=== PATIENT | female | born 1950 | race Hispanic/Latino ===

== ENCOUNTER 2022-01-07 16:56 | Emergency (ER) | payer OTHER, MEDICARE ==
[~2022-01-07] VITALS: Ht 152.4 cm; Wt 44.5 kg
[2022-01-07 17:30] VITALS: BP 116/65
[2022-01-07] MEDS ORDERED: HYDROCODONE/ACETAMINOPHEN 5/325 MG TAB PO ONE (17:30)
[2022-01-07] MEDS ORDERED: CYCLOBENZAPRINE HCL 10 MG TABLET PO ONE (17:30)
[2022-01-07] MEDS ORDERED: CYCL10TA16 PO (19:05)
[2022-01-07] MEDS ORDERED: NAPR-1180 PO (19:05)
== END 2022-01-07 19:19 | disposition home or self-care (01) ==
LOC: EDH 16:56
DX: S16.1XXA Strain of muscle, fascia and tendon at neck level, initial encounter (principal); S00.33XA Contusion of nose, initial encounter; S20.219A Contusion of unspecified front wall of thorax, initial encounter; Z20.822 Contact with and (suspected) exposure to COVID-19; E78.00 Pure hypercholesterolemia, unspecified; Z79.1 Long term (current) use of non-steroidal anti-inflammatories (NSAID); Z89.512 Acquired absence of left leg below knee; X58.XXXA Exposure to other specified factors, initial encounter; Y93.89 Activity, other specified; Y92.89 Other specified places as the place of occurrence of the external cause; Y99.8 Other external cause status
CPT/HCPCS: 70450; 70486; 71045; 71120; 72125

== ENCOUNTER 2022-07-14 09:06 | Inpatient (IN) | payer OTHER, MEDICARE ==
[2022-07-14] VITALS (24 sets, daily range): BP systolic 101–159; BP diastolic 48–65
[~2022-07-14] VITALS: Ht 152.4 cm; Wt 42.6 kg
[~2022-07-14 09:06] MED LIST: CYCL10TA16 PO; NAPR-1180 PO
[2022-07-14] MEDS ORDERED: HYDROCODONE/ACETAMINOPHEN 5/325 MG TAB PO ONE (10:00)
[2022-07-14 11:19] LABS: BASOPHILS % (AUTO) 0.2 % (0.0-5.0); EOSINOPHILS % (AUTO) 0.9 % (0.0-8.0); HEMATOCRIT 34.6 % (36-48); MEAN CORPUSCULAR HEMOGLOBIN 28.8 pg (27.0-33.0); MEAN CORPUSCULAR HGB CONC 31.8 g/dL (32.0-36.0); MEAN CORPUSCULAR VOLUME 90.6 fL (79-99); MONOCYTES % (AUTO) 7.9 % (3.0-13.0); NEUTROPHILS % (AUTO) 72.5 % (40.0-77.0); PLATELET COUNT (AUTO) 256 K/uL (130-400); RED BLOOD CELL COUNT(AUTO) 3.82 MIL/uL (4.00-5.50); RED CELL DISTRIBUTION WIDTH 13.5 % (11.0-15.5); WHITE BLOOD COUNT (AUTO) 8.6 K/uL (4.8-10.8)
[2022-07-14 11:24] LABS: CREATININE 0.7 mg/dL (0.5-1.5); POTASSIUM 3.8 mmol/L (3.5-5.1)
[2022-07-14] MEDS: 0.9%NACL 1000ML 1,000 ML IV SCH ×2 (11:28→13:27)
[2022-07-14 11:29] LABS: ALBUMIN 3.5 g/dL (3.5-5.0); TOTAL PROTEIN, SERUM 7.5 g/dL (6.0-8.3)
[2022-07-14] MEDS ORDERED: ACETAMINOPHEN WITH CODEINE 1 TAB TAB PO PRN (11:30)
[2022-07-14] MEDS ORDERED: ONDANSETRON 4MG INJ IV PRN (11:30)
[2022-07-14] MEDS ORDERED: ACETAMINOPHEN 325 MG TAB PO PRN ×2 (11:30)
[2022-07-14] MEDS ORDERED: MORPHINE 2 MG SYG IVP PRN (11:30)
[2022-07-14 11:34] LABS: INR 0.94 (0.85-1.15); PROTHROMBIN TIME 10.3 SEC (9.6-11.6)
[2022-07-14] MEDS ORDERED: SUCCINYLCHOLINE CHLORIDE 20 MG/ML 10 ML VIAL ONE (14:50)
[2022-07-14] MEDS ORDERED: MIDAZOLAM HCL 1 MG/ML 2ML VIAL ONE (14:51)
[2022-07-14] MEDS ORDERED: ROPIVACAINE 0.5% 5MG/ML 30ML IJ ONE (14:51)
[2022-07-14] MEDS ORDERED: PROPOFOL 10 MG/ML 20ML VIAL IV ONE (14:51)
[2022-07-14] MEDS ORDERED: ROCURONIUM 10MG/1ML SYR 10 MG/ML ML ONE (14:52)
[2022-07-14] MEDS ORDERED: FENTANYL CITRATE PF 50 MCG/1 ML 2ML VIAL ONE (14:52)
[2022-07-14] MEDS ORDERED: CEFAZOLIN SODIUM 2 GM VIAL IVP ONE (15:12)
[2022-07-14] MEDS ORDERED: NEOSTIGMINE 5MG/5ML SYR IV ONE (16:09)
[2022-07-14] MEDS ORDERED: GLYCOPYRROLATE 1 MG/5 ML SYRINGE ONE (16:09)
[2022-07-14] MEDS ORDERED: FAMOTIDINE 20MG TAB ONE (19:01)
[2022-07-14] MEDS ORDERED: CEFAZOLIN SODIUM 1 GM VIAL ONE (19:01)
[2022-07-14] MEDS: FAMOTIDINE 20MG TAB PO SCH (20:01)
[2022-07-14] MEDS: CEFAZOLIN SODIUM 1 GM VIAL IVP SCH (20:01)
[2022-07-15] VITALS: BP 109/50
[2022-07-15 03:47] LABS: BASOPHILS % (AUTO) 0.3 % (0.0-5.0); EOSINOPHILS % (AUTO) 0.5 % (0.0-8.0); HEMATOCRIT 26.1 % (36-48); LYMPHOCYTES % (AUTO) 14.3 % (21.0-51.0); MEAN CORPUSCULAR HEMOGLOBIN 29.1 pg (27.0-33.0); MEAN CORPUSCULAR HGB CONC 32.2 g/dL (32.0-36.0); MEAN CORPUSCULAR VOLUME 90.3 fL (79-99); MONOCYTES % (AUTO) 9.9 % (3.0-13.0); NEUTROPHILS % (AUTO) 74.5 % (40.0-77.0); PLATELET COUNT (AUTO) 224 K/uL (130-400); RED BLOOD CELL COUNT(AUTO) 2.89 MIL/uL (4.00-5.50); RED CELL DISTRIBUTION WIDTH 13.4 % (11.0-15.5); WHITE BLOOD COUNT (AUTO) 10.1 K/uL (4.8-10.8)
[2022-07-15] MEDS: ACETAMINOPHEN WITH CODEINE 1 TAB TAB PO PRN ×2 (03:51→19:30)
[2022-07-15] MEDS: CEFAZOLIN SODIUM 1 GM VIAL IVP SCH (03:51)
[2022-07-15 03:57] LABS: CREATININE 0.6 mg/dL (0.5-1.5); POTASSIUM 3.8 mmol/L (3.5-5.1)
[2022-07-15 04:00] VITALS: BP 110/46
[2022-07-15 08:00] VITALS: BP 91/45
[2022-07-15] MEDS: FAMOTIDINE 20MG TAB PO SCH ×2 (08:31→19:29)
[2022-07-15] MEDS: ENOXAPARIN SODIUM 40 MG/0.4 ML SYRINGE SQ SCH (08:32)
[2022-07-15 11:45] VITALS: BP 114/54
[2022-07-15 15:49] VITALS: BP 119/58
[2022-07-15 20:00] VITALS: BP 109/50
[2022-07-16] VITALS: BP 104/58
[2022-07-16 04:00] VITALS: BP 107/55
[2022-07-16 04:51] LABS: BASOPHILS % (AUTO) 0.2 % (0.0-5.0); HEMATOCRIT 26.1 % (36-48); LYMPHOCYTES % (AUTO) 7.5 % (21.0-51.0); MEAN CORPUSCULAR HEMOGLOBIN 29.4 pg (27.0-33.0); MEAN CORPUSCULAR VOLUME 89.1 fL (79-99); MONOCYTES % (AUTO) 11.5 % (3.0-13.0); NEUTROPHILS % (AUTO) 80.3 % (40.0-77.0); PLATELET COUNT (AUTO) 245 K/uL (130-400); RED BLOOD CELL COUNT(AUTO) 2.93 MIL/uL (4.00-5.50); RED CELL DISTRIBUTION WIDTH 13.5 % (11.0-15.5); WHITE BLOOD COUNT (AUTO) 13.3 K/uL (4.8-10.8)
[2022-07-16 05:10] LABS: ALBUMIN 2.4 g/dL (3.5-5.0); CREATININE 0.6 mg/dL (0.5-1.5); POTASSIUM 3.2 mmol/L (3.5-5.1); TOTAL PROTEIN, SERUM 6.1 g/dL (6.0-8.3)
[2022-07-16] MEDS: FAMOTIDINE 20MG TAB PO SCH ×2 (07:51→19:20)
[2022-07-16] MEDS: ENOXAPARIN SODIUM 40 MG/0.4 ML SYRINGE SQ SCH (07:52)
[2022-07-16 08:00] VITALS: BP 109/49
[2022-07-16] MEDS ORDERED: POTASSIUM CHLORIDE 20MEQ/100ML 100 ML IV PRN (08:00)
[2022-07-16] MEDS ORDERED: LIDOCAINE HCL-MPF 1% 2ML VIAL IV PRN (08:00)
[2022-07-16] MEDS ORDERED: OFLO35OS OS (08:14)
[2022-07-16] MEDS ORDERED: CYCL-309 PO (08:14)
[2022-07-16] MEDS ORDERED: PREDAOS OS (08:14)
[2022-07-16] MEDS ORDERED: ATOR40TA71 PO (08:14)
[2022-07-16] MEDS ORDERED: POTASSIUM CHLORIDE 10% ELIXIR 20 MEQ/15 ML UDCUP PO PRN (09:30)
[2022-07-16] MEDS: KCL 20 MEQ ERTAB PO PRN ×3 (09:33→15:35)
[2022-07-16 12:00] VITALS: BP 107/53
[2022-07-16 16:00] VITALS: BP 107/52
[2022-07-16] MEDS: ACETAMINOPHEN WITH CODEINE 1 TAB TAB PO PRN (19:11)
[2022-07-16 20:00] VITALS: BP 93/48
[2022-07-17] VITALS: BP 101/52
[2022-07-17 03:50] LABS: MEAN CORPUSCULAR HEMOGLOBIN 28.8 pg (27.0-33.0); MEAN CORPUSCULAR VOLUME 89.9 fL (79-99); RED BLOOD CELL COUNT(AUTO) 2.78 MIL/uL (4.00-5.50); RED CELL DISTRIBUTION WIDTH 13.5 % (11.0-15.5); WHITE BLOOD COUNT (AUTO) 10.5 K/uL (4.8-10.8)
[2022-07-17 04:00] VITALS: BP 101/52
[2022-07-17 04:03] LABS: CREATININE 0.6 mg/dL (0.5-1.5); POTASSIUM 3.9 mmol/L (3.5-5.1)
[2022-07-17] MEDS: ENOXAPARIN SODIUM 40 MG/0.4 ML SYRINGE SQ SCH (07:55)
[2022-07-17] MEDS: FAMOTIDINE 20MG TAB PO SCH ×2 (07:55→19:21)
[2022-07-17 08:00] VITALS: BP 111/55
[2022-07-17] MEDS: POLYETHYLENE GLYCOL 3350 17 GM POWD.PACK PO SCH (11:07)
[2022-07-17] MEDS: ACETAMINOPHEN WITH CODEINE 1 TAB TAB PO PRN (11:17)
[2022-07-17 11:31] VITALS: BP 115/56
[2022-07-17] MEDS: OFLOXACIN OS SCH ×3 (13:00→20:10)
[2022-07-17 16:00] VITALS: BP 97/52
[2022-07-17] MEDS: PREDNISOLONE 1% DROPS OS SCH ×3 (17:00→20:10)
[2022-07-17] MEDS ORDERED: LACTULOSE 20 GM/30 ML UDCUP PO PRN (17:00)
[2022-07-17 20:00] VITALS: BP 117/55
[2022-07-17] MEDS ORDERED: ATORVASTATIN 40 MG TABLET PO SCH (21:00)
[2022-07-18] VITALS: BP 130/58
[2022-07-18 03:30] VITALS: BP 117/59
[2022-07-18 05:01] LABS: BASOPHILS % (AUTO) 0.2 % (0.0-5.0); EOSINOPHILS % (AUTO) 2.5 % (0.0-8.0); HEMATOCRIT 25.4 % (36-48); LYMPHOCYTES % (AUTO) 16.2 % (21.0-51.0); MEAN CORPUSCULAR HEMOGLOBIN 28.4 pg (27.0-33.0); MEAN CORPUSCULAR HGB CONC 31.5 g/dL (32.0-36.0); MEAN CORPUSCULAR VOLUME 90.1 fL (79-99); MONOCYTES % (AUTO) 8.7 % (3.0-13.0); NEUTROPHILS % (AUTO) 71.9 % (40.0-77.0); PLATELET COUNT (AUTO) 257 K/uL (130-400); RED BLOOD CELL COUNT(AUTO) 2.82 MIL/uL (4.00-5.50); RED CELL DISTRIBUTION WIDTH 13.5 % (11.0-15.5); WHITE BLOOD COUNT (AUTO) 8.5 K/uL (4.8-10.8)
[2022-07-18 05:21] LABS: CREATININE 0.7 mg/dL (0.5-1.5); MAGNESIUM 2.2 mg/dL (1.80-2.40); POTASSIUM 3.9 mmol/L (3.5-5.1)
[2022-07-18 09:00] VITALS: BP 111/51
[2022-07-18] MEDS: OFLOXACIN OS SCH ×2 (09:00→13:00)
[2022-07-18] MEDS: POLYETHYLENE GLYCOL 3350 17 GM POWD.PACK PO SCH (09:00)
[2022-07-18] MEDS: PREDNISOLONE 1% DROPS OS SCH ×2 (09:00→13:00)
[2022-07-18] MEDS: FAMOTIDINE 20MG TAB PO SCH (09:13)
[2022-07-18] MEDS: ENOXAPARIN SODIUM 40 MG/0.4 ML SYRINGE SQ SCH (09:14)
[2022-07-18 11:20] VITALS: BP 112/54
== END 2022-07-18 16:00 | DRG 481 ==
LOC: EDH 09:06 → EDHIP 11:14 → 4BH 13:18
PROVIDERS: ADMIT Hospitalist; ATTEND Hospitalist
PROC: 0QSC04Z Reposition Left Lower Femur with Internal Fixation Device, Open Approach (ICD-10-PCS; principal; 2022-07-14 14:55)
DX: S72.492A Other fracture of lower end of left femur, initial encounter for closed fracture (principal); E44.1 Mild protein-calorie malnutrition; R71.0 Precipitous drop in hematocrit; E78.00 Pure hypercholesterolemia, unspecified; I10 Essential (primary) hypertension; W07.XXXA Fall from chair, initial encounter; Z89.611 Acquired absence of right leg above knee; Y93.89 Activity, other specified; Z89.512 Acquired absence of left leg below knee; Y92.89 Other specified places as the place of occurrence of the external cause; Y99.8 Other external cause status
CPT/HCPCS: 36415; 71045; 73552; 73562; 74018; 80048; 80053; 83735; 85025; 85027; 85610; 93005; 97039; G0378; J0330; J0690; J1650; J2250; J2704; J2710; J2795; J3010; J3490; J7030; J7510

== ENCOUNTER 2022-08-25 09:35 | Inpatient (IN) | payer OTHER, MEDICARE ==
[~2022-08-25] VITALS: Ht 152.4 cm; Wt 43.6 kg
[~2022-08-25 09:35] MED LIST changes: +ATOR40TA71 PO; +CYCL-309 PO; -CYCL10TA16 PO; -NAPR-1180 PO; +OFLO35OS OS; +PREDAOS OS
[2022-08-25] MEDS ORDERED: MORPHINE 2 MG SYG IVP ONE (12:30)
[2022-08-25] MEDS ORDERED: 0.9% NACL 250ML 250 ML IV ONE ×2 (12:30→14:30)
[2022-08-25] MEDS ORDERED: ONDANSETRON 4MG INJ IVP ONE (12:30)
[2022-08-25 12:47] LABS: BASOPHILS % (AUTO) 0.2 % (0.0-5.0); EOSINOPHILS % (AUTO) 0.1 % (0.0-8.0); HEMATOCRIT 30.8 % (36-48); LYMPHOCYTES % (AUTO) 11.2 % (21.0-51.0); MEAN CORPUSCULAR HEMOGLOBIN 26.3 pg (27.0-33.0); MEAN CORPUSCULAR HGB CONC 31.2 g/dL (32.0-36.0); MEAN CORPUSCULAR VOLUME 84.4 fL (79-99); MONOCYTES % (AUTO) 6.6 % (3.0-13.0); NEUTROPHILS % (AUTO) 81.3 % (40.0-77.0); RED BLOOD CELL COUNT(AUTO) 3.65 MIL/uL (4.00-5.50); RED CELL DISTRIBUTION WIDTH 15.3 % (11.0-15.5); WHITE BLOOD COUNT (AUTO) 15.2 K/uL (4.8-10.8)
[2022-08-25] MEDS ORDERED: VANCOMYCIN 1G/250ML KIT 250 ML IV SCH (13:00)
[2022-08-25] MEDS ORDERED: VANCOMYCIN 1G VIAL IVPB ONE (13:00)
[2022-08-25] MEDS ORDERED: ZOSYN 3.375GM +NS 50ML IV ONE (13:00)
[2022-08-25 13:04] LABS: ALBUMIN 2.7 g/dL (3.5-5.0); CREATININE 0.6 mg/dL (0.5-1.5); POTASSIUM 3.7 mmol/L (3.5-5.1); TOTAL PROTEIN, SERUM 8.1 g/dL (6.0-8.3)
[2022-08-25 13:43] LABS: PLATELET COUNT (AUTO) 721 K/uL (130-400)
[2022-08-25 13:55] LABS: ERYTHROCYTE SEDIMENTATION RATE 118 MM/HR (0-30)
[2022-08-25] MEDS ORDERED: ONDANSETRON 4MG INJ IV PRN (15:30)
[2022-08-25] MEDS ORDERED: VANCOMYCIN PROTOCOL PER PHARMACY IV PRN (15:30)
[2022-08-25] MEDS ORDERED: ACETAMINOPHEN 325 MG TAB PO PRN ×2 (15:30)
[2022-08-25] MEDS: MORPHINE 2 MG SYG IV PRN ×2 (15:57→20:30)
[2022-08-25] MEDS: 0.9%NACL 1000ML 1,000 ML IV SCH (15:57)
[2022-08-25] MEDS ORDERED: VANCOMYCIN 500MG+NS 100ML 100 ML IV ONE (19:59)
[2022-08-25] MEDS: VANCOMYCIN 500MG+NS 100ML 100 ML IV SCH (20:06)
[2022-08-25] MEDS: FAMOTIDINE 20MG VIAL IV SCH (20:07)
[2022-08-25] MEDS: CEFEPIME HCL 2 GM VIAL IVP SCH (20:07)
[2022-08-25] MEDS: GABAPENTIN 300 MG CAPSULE PO SCH (20:09)
[2022-08-25] MEDS ORDERED: ZOSYN 3.375GM+NS 50ML 50 ML IV SCH (21:00)
[2022-08-26] MEDS: MORPHINE 2 MG SYG IV PRN ×4 (00:18→20:10)
[2022-08-26] MEDS: 0.9%NACL 1000ML 1,000 ML IV SCH ×2 (05:02→15:33)
[2022-08-26 05:40] LABS: BASOPHILS % (AUTO) 0.4 % (0.0-5.0); EOSINOPHILS % (AUTO) 0.7 % (0.0-8.0); HEMATOCRIT 27.8 % (36-48); MEAN CORPUSCULAR HGB CONC 30.6 g/dL (32.0-36.0); MONOCYTES % (AUTO) 8.9 % (3.0-13.0); NEUTROPHILS % (AUTO) 75.5 % (40.0-77.0); PLATELET COUNT (AUTO) 611 K/uL (130-400); RED BLOOD CELL COUNT(AUTO) 3.27 MIL/uL (4.00-5.50); RED CELL DISTRIBUTION WIDTH 15.4 % (11.0-15.5); WHITE BLOOD COUNT (AUTO) 9.9 K/uL (4.8-10.8)
[2022-08-26 05:57] LABS: ALBUMIN 2.3 g/dL (3.5-5.0); CREATININE 0.6 mg/dL (0.5-1.5); POTASSIUM 3.9 mmol/L (3.5-5.1)
[2022-08-26 06:34] LABS: ERYTHROCYTE SEDIMENTATION RATE 90 MM/HR (0-30)
[2022-08-26] MEDS: CEFEPIME HCL 2 GM VIAL IVP SCH ×2 (08:22→19:52)
[2022-08-26] MEDS: FAMOTIDINE 20MG VIAL IV SCH ×2 (09:03→19:52)
[2022-08-26] MEDS: GABAPENTIN 300 MG CAPSULE PO SCH ×3 (09:03→19:52)
[2022-08-26] MEDS: VANCOMYCIN 500MG+NS 100ML 100 ML IV SCH ×2 (09:03→21:14)
[2022-08-26] MEDS ORDERED: ASPI-1197 PO (11:30)
[2022-08-26 13:30] VITALS: BP 121/55
[2022-08-26 16:03] VITALS: BP 130/57
[2022-08-26 20:00] VITALS: BP 123/52
[2022-08-27] VITALS (27 sets, daily range): BP systolic 81–168; BP diastolic 29–83
[2022-08-27] MEDS: 0.9%NACL 1000ML 1,000 ML IV SCH ×2 (05:35→18:42)
[2022-08-27] MEDS: MORPHINE 2 MG SYG IV PRN ×3 (05:42→20:42)
[2022-08-27] MEDS ORDERED: ALBUMIN (HUMAN) 5% 500 ML IV ONE (07:18)
[2022-08-27 08:17] LABS: HEMATOCRIT 25.1 % (36-48); MEAN CORPUSCULAR HGB CONC 29.9 g/dL (32.0-36.0); MEAN CORPUSCULAR VOLUME 86.9 fL (79-99); RED BLOOD CELL COUNT(AUTO) 2.89 MIL/uL (4.00-5.50); RED CELL DISTRIBUTION WIDTH 15.4 % (11.0-15.5); WHITE BLOOD COUNT (AUTO) 7.8 K/uL (4.8-10.8)
[2022-08-27 08:41] LABS: CREATININE 0.5 mg/dL (0.5-1.5); POTASSIUM 3.4 mmol/L (3.5-5.1); TOTAL PROTEIN, SERUM 6.1 g/dL (6.0-8.3)
[2022-08-27 08:42] LABS: PROTHROMBIN TIME 10.9 SEC (9.6-11.6)
[2022-08-27 08:43] LABS: PARTIAL THROMBOPLASTIN TIME 35.1 SEC (26.3-35.5)
[2022-08-27] MEDS ORDERED: 0.9% NACL 250ML 250 ML ONE (08:48)
[2022-08-27] MEDS ORDERED: LACTATED RINGERS 1000ML 1,000 ML IV ONE (08:54)
[2022-08-27] MEDS: GABAPENTIN 300 MG CAPSULE PO SCH ×3 (09:00→20:41)
[2022-08-27] MEDS: FAMOTIDINE 20MG VIAL IV SCH ×2 (09:00→20:41)
[2022-08-27] MEDS ORDERED: LIDOCAINE PF 100MG/5ML (2%) SYRINGE 5ML ONE (09:02)
[2022-08-27] MEDS ORDERED: SUCCINYLCHOLINE 200MG/10ML SYR ONE (09:02)
[2022-08-27] MEDS ORDERED: DEXAMETHASONE SOD PHOSPHATE 10MG/ML 1ML VIAL ONE (09:02)
[2022-08-27] MEDS ORDERED: NEOSTIGMINE 5MG/5ML SYR IV ONE (09:03)
[2022-08-27] MEDS ORDERED: ONDANSETRON 4MG INJ ONE (09:03)
[2022-08-27] MEDS ORDERED: ROCURONIUM 10MG/1ML SYR 10 MG/ML ML ONE (09:03)
[2022-08-27] MEDS ORDERED: MIDAZOLAM HCL 1 MG/ML 2ML VIAL ONE (09:03)
[2022-08-27] MEDS ORDERED: PROPOFOL 10 MG/ML 20ML VIAL IV ONE (09:03)
[2022-08-27] MEDS ORDERED: GLYCOPYRROLATE 1 MG/5 ML SYRINGE ONE (09:03)
[2022-08-27] MEDS ORDERED: FENTANYL CITRATE PF 50 MCG/1 ML 2ML VIAL ONE (09:04)
[2022-08-27] MEDS: CEFEPIME HCL 2 GM VIAL IVP SCH ×2 (09:32→20:40)
[2022-08-27] MEDS: VANCOMYCIN 500MG+NS 100ML 100 ML IV SCH ×3 (09:32→23:19)
[2022-08-27] MEDS ORDERED: DIPHENHYDRAMINE HCL 25 MG CAPSULE PO PRN (10:30)
[2022-08-27] MEDS ORDERED: FERROUS FUMARATE 324 MG TABLET PO PRN (10:30)
[2022-08-27] MEDS ORDERED: MEPERIDINE-PF 25 MG/ML SYG ONE ×2 (10:39→10:55)
[2022-08-27] MEDS: PSYLLIUM SEED 1 EACH PACKET PO SCH (13:14)
[2022-08-27 14:15] LABS: HEMATOCRIT 25.4 % (36-48)
[2022-08-27] MEDS: ATORVASTATIN 40 MG TABLET PO SCH (20:41)
[2022-08-28 00:01] VITALS: BP 128/58
[2022-08-28 03:57] VITALS: BP 123/51
[2022-08-28] MEDS: 0.9%NACL 1000ML 1,000 ML IV SCH ×2 (05:44→21:14)
[2022-08-28 05:52] LABS: INR 1.02 (0.85-1.15); PROTHROMBIN TIME 11.1 SEC (9.6-11.6)
[2022-08-28 06:00] LABS: CREATININE 0.5 mg/dL (0.5-1.5); POTASSIUM 3.6 mmol/L (3.5-5.1)
[2022-08-28 06:04] LABS: HEMATOCRIT 23.2 % (36-48); MEAN CORPUSCULAR HEMOGLOBIN 25.9 pg (27.0-33.0); MEAN CORPUSCULAR HGB CONC 30.6 g/dL (32.0-36.0); MEAN CORPUSCULAR VOLUME 84.7 fL (79-99); RED BLOOD CELL COUNT(AUTO) 2.74 MIL/uL (4.00-5.50); RED CELL DISTRIBUTION WIDTH 15.4 % (11.0-15.5); WHITE BLOOD COUNT (AUTO) 11.1 K/uL (4.8-10.8)
[2022-08-28] MEDS: VANCOMYCIN 500MG+NS 100ML 100 ML IV SCH ×3 (06:31→22:36)
[2022-08-28 08:00] VITALS: BP 131/60
[2022-08-28] MEDS: CEFEPIME HCL 2 GM VIAL IVP SCH ×2 (08:46→20:32)
[2022-08-28] MEDS: ASPIRIN 81MG CHEW TAB PO SCH (08:47)
[2022-08-28] MEDS: GABAPENTIN 300 MG CAPSULE PO SCH ×3 (08:47→20:33)
[2022-08-28] MEDS: FAMOTIDINE 20MG VIAL IV SCH ×2 (08:47→20:33)
[2022-08-28] MEDS: POLYETHYLENE GLYCOL 3350 17 GM POWD.PACK PO SCH (08:47)
[2022-08-28] MEDS: MORPHINE 2 MG SYG IV PRN ×3 (08:54→20:35)
[2022-08-28 12:00] VITALS: BP 95/51
[2022-08-28] MEDS: PSYLLIUM SEED 1 EACH PACKET PO SCH (12:11)
[2022-08-28 16:00] VITALS: BP 107/54
[2022-08-28 19:38] VITALS: BP 119/69
[2022-08-28] MEDS: ATORVASTATIN 40 MG TABLET PO SCH (20:33)
[2022-08-29 00:10] VITALS: BP 121/62
[2022-08-29] MEDS: MORPHINE 2 MG SYG IV PRN ×4 (01:04→16:25)
[2022-08-29 03:45] VITALS: BP 117/52
[2022-08-29 05:25] LABS: HEMATOCRIT 22.8 % (36-48); MEAN CORPUSCULAR HEMOGLOBIN 25.9 pg (27.0-33.0); MEAN CORPUSCULAR HGB CONC 30.3 g/dL (32.0-36.0); MEAN CORPUSCULAR VOLUME 85.7 fL (79-99); RED BLOOD CELL COUNT(AUTO) 2.66 MIL/uL (4.00-5.50); RED CELL DISTRIBUTION WIDTH 15.4 % (11.0-15.5)
[2022-08-29 05:36] LABS: CREATININE 0.5 mg/dL (0.5-1.5); POTASSIUM 3.1 mmol/L (3.5-5.1)
[2022-08-29] MEDS: VANCOMYCIN 500MG+NS 100ML 100 ML IV SCH (05:48)
[2022-08-29 05:50] LABS: INR 0.99 (0.85-1.15); PROTHROMBIN TIME 10.8 SEC (9.6-11.6)
[2022-08-29 06:37] LABS: HEMATOCRIT 23.4 % (36-48)
[2022-08-29 07:00] VITALS: BP 113/57
[2022-08-29] MEDS ORDERED: POTASSIUM CHLORIDE 20MEQ/100ML 100 ML IV PRN (09:40)
[2022-08-29] MEDS: ASPIRIN 81MG CHEW TAB PO SCH (09:45)
[2022-08-29] MEDS: 0.9%NACL 1000ML 1,000 ML IV SCH ×2 (09:45→20:10)
[2022-08-29] MEDS: GABAPENTIN 300 MG CAPSULE PO SCH ×3 (09:45→20:11)
[2022-08-29] MEDS: FAMOTIDINE 20MG VIAL IV SCH ×2 (09:45→20:11)
[2022-08-29] MEDS: CEFEPIME HCL 2 GM VIAL IVP SCH (09:45)
[2022-08-29] MEDS: POLYETHYLENE GLYCOL 3350 17 GM POWD.PACK PO SCH (09:45)
[2022-08-29] MEDS: KCL 20 MEQ ERTAB PO PRN ×3 (09:46→20:11)
[2022-08-29] MEDS ORDERED: LIDOCAINE HCL-MPF 1% 2ML VIAL IV PRN (10:00)
[2022-08-29] MEDS ORDERED: POTASSIUM CHLORIDE 10% ELIXIR 20 MEQ/15 ML UDCUP PO PRN (10:00)
[2022-08-29] MEDS ORDERED: BISACODYL 5 MG TABLET.DR PO PRN (10:30)
[2022-08-29 11:00] VITALS: BP 112/55
[2022-08-29] MEDS: PSYLLIUM SEED 1 EACH PACKET PO SCH (11:25)
[2022-08-29] MEDS: LEVOFLOXACIN 500 MG TABLET PO SCH (12:44)
[2022-08-29 16:00] VITALS: BP 137/75
[2022-08-29 20:00] VITALS: BP 132/67
[2022-08-29] MEDS: ATORVASTATIN 40 MG TABLET PO SCH (20:10)
[2022-08-30] VITALS: BP 122/61
[2022-08-30] MEDS: MORPHINE 2 MG SYG IV PRN ×4 (00:13→17:58)
[2022-08-30 04:00] VITALS: BP 112/56
[2022-08-30 06:02] LABS: HEMATOCRIT 26.9 % (36-48); MEAN CORPUSCULAR HEMOGLOBIN 25.7 pg (27.0-33.0); MEAN CORPUSCULAR HGB CONC 29.7 g/dL (32.0-36.0); MEAN CORPUSCULAR VOLUME 86.5 fL (79-99); RED BLOOD CELL COUNT(AUTO) 3.11 MIL/uL (4.00-5.50); RED CELL DISTRIBUTION WIDTH 15.4 % (11.0-15.5); WHITE BLOOD COUNT (AUTO) 7.5 K/uL (4.8-10.8)
[2022-08-30 06:07] LABS: INR 1.02 (0.85-1.15); PROTHROMBIN TIME 11.1 SEC (9.6-11.6)
[2022-08-30 06:11] LABS: CREATININE 0.4 mg/dL (0.5-1.5); POTASSIUM 4.1 mmol/L (3.5-5.1)
[2022-08-30] MEDS: ASPIRIN 81MG CHEW TAB PO SCH (07:52)
[2022-08-30] MEDS: GABAPENTIN 300 MG CAPSULE PO SCH ×3 (07:52→22:06)
[2022-08-30] MEDS: POLYETHYLENE GLYCOL 3350 17 GM POWD.PACK PO SCH (07:52)
[2022-08-30] MEDS: 0.9%NACL 1000ML 1,000 ML IV SCH ×2 (07:53→16:04)
[2022-08-30] MEDS: FAMOTIDINE 20MG VIAL IV SCH ×2 (07:53→22:06)
[2022-08-30 08:00] VITALS: BP 109/60
[2022-08-30] MEDS ORDERED: LEVO-70 PO (08:46)
[2022-08-30] MEDS ORDERED: GABA300C PO (08:46)
[2022-08-30] MEDS ORDERED: BISACODYL 10 MG SUPP.RECT RC PRN (10:30)
[2022-08-30 12:00] VITALS: BP 101/50
[2022-08-30] MEDS: PSYLLIUM SEED 1 EACH PACKET PO SCH (12:12)
[2022-08-30] MEDS: LEVOFLOXACIN 500 MG TABLET PO SCH (12:12)
[2022-08-30 16:00] VITALS: BP 133/77
[2022-08-30 20:00] VITALS: BP 120/66
[2022-08-30] MEDS: ATORVASTATIN 40 MG TABLET PO SCH (22:06)
[2022-08-30] MEDS: MORPHINE 2 MG SYG IVP PRN (22:46)
[2022-08-31] VITALS: BP 136/64
[2022-08-31 04:00] VITALS: BP 123/68
[2022-08-31] MEDS: MORPHINE 2 MG SYG IVP PRN ×5 (04:17→22:43)
[2022-08-31 07:30] VITALS: BP 96/58
[2022-08-31] MEDS: ASPIRIN 81MG CHEW TAB PO SCH (08:50)
[2022-08-31] MEDS: GABAPENTIN 300 MG CAPSULE PO SCH ×3 (08:50→21:19)
[2022-08-31] MEDS: POLYETHYLENE GLYCOL 3350 17 GM POWD.PACK PO SCH (08:50)
[2022-08-31] MEDS: FAMOTIDINE 20MG VIAL IV SCH ×2 (08:50→21:19)
[2022-08-31] MEDS: 0.9%NACL 1000ML 1,000 ML IV SCH (10:44)
[2022-08-31 11:00] VITALS: BP 115/60
[2022-08-31] MEDS: LEVOFLOXACIN 500 MG TABLET PO SCH (12:51)
[2022-08-31] MEDS: PSYLLIUM SEED 1 EACH PACKET PO SCH (12:52)
[2022-08-31 16:00] VITALS: BP 126/72
[2022-08-31 20:00] VITALS: BP 117/60
[2022-08-31] MEDS: ATORVASTATIN 40 MG TABLET PO SCH (21:19)
[2022-09-01] VITALS (7 sets, daily range): BP systolic 96–141; BP diastolic 57–66
[2022-09-01] MEDS: MORPHINE 2 MG SYG IVP PRN ×4 (03:26→20:58)
[2022-09-01] MEDS ORDERED: LACTULOSE 20 GM/30 ML UDCUP PO ONE (04:00)
[2022-09-01 05:04] LABS: BASOPHILS % (AUTO) 0.5 % (0.0-5.0); EOSINOPHILS % (AUTO) 5.4 % (0.0-8.0); HEMATOCRIT 27.5 % (36-48); LYMPHOCYTES % (AUTO) 22.8 % (21.0-51.0); MEAN CORPUSCULAR HEMOGLOBIN 25.8 pg (27.0-33.0); MEAN CORPUSCULAR HGB CONC 30.2 g/dL (32.0-36.0); MEAN CORPUSCULAR VOLUME 85.4 fL (79-99); MONOCYTES % (AUTO) 9.4 % (3.0-13.0); NEUTROPHILS % (AUTO) 61.1 % (40.0-77.0); PLATELET COUNT (AUTO) 582 K/uL (130-400); RED BLOOD CELL COUNT(AUTO) 3.22 MIL/uL (4.00-5.50); RED CELL DISTRIBUTION WIDTH 15.5 % (11.0-15.5); WHITE BLOOD COUNT (AUTO) 9.7 K/uL (4.8-10.8)
[2022-09-01 05:17] LABS: CREATININE 0.6 mg/dL (0.5-1.5); POTASSIUM 4.4 mmol/L (3.5-5.1)
[2022-09-01] MEDS: GABAPENTIN 300 MG CAPSULE PO SCH ×3 (09:16→20:57)
[2022-09-01] MEDS: FAMOTIDINE 20MG VIAL IV SCH ×2 (09:16→20:57)
[2022-09-01] MEDS: ASPIRIN 81MG CHEW TAB PO SCH (09:16)
[2022-09-01] MEDS: POLYETHYLENE GLYCOL 3350 17 GM POWD.PACK PO SCH (09:17)
[2022-09-01] MEDS ORDERED: ACETAMINOPHEN WITH CODEINE 1 TAB TAB PO PRN (11:00)
[2022-09-01] MEDS: LEVOFLOXACIN 500 MG TABLET PO SCH (12:03)
[2022-09-01] MEDS: PSYLLIUM SEED 1 EACH PACKET PO SCH (12:04)
[2022-09-01] MEDS: ATORVASTATIN 40 MG TABLET PO SCH (20:57)
[2022-09-02] MEDS: MORPHINE 2 MG SYG IVP PRN ×4 (03:03→20:40)
[2022-09-02 03:51] VITALS: BP 119/52
[2022-09-02 05:16] LABS: BASOPHILS % (AUTO) 0.5 % (0.0-5.0); HEMATOCRIT 26.8 % (36-48); LYMPHOCYTES % (AUTO) 23.7 % (21.0-51.0); MEAN CORPUSCULAR HEMOGLOBIN 25.8 pg (27.0-33.0); MEAN CORPUSCULAR HGB CONC 31.3 g/dL (32.0-36.0); MEAN CORPUSCULAR VOLUME 82.2 fL (79-99); MONOCYTES % (AUTO) 11.4 % (3.0-13.0); NEUTROPHILS % (AUTO) 58.6 % (40.0-77.0); PLATELET COUNT (AUTO) 583 K/uL (130-400); RED BLOOD CELL COUNT(AUTO) 3.26 MIL/uL (4.00-5.50); RED CELL DISTRIBUTION WIDTH 15.7 % (11.0-15.5); WHITE BLOOD COUNT (AUTO) 9.8 K/uL (4.8-10.8)
[2022-09-02 05:29] LABS: CREATININE 0.5 mg/dL (0.5-1.5); MAGNESIUM 2.1 mg/dL (1.80-2.40); POTASSIUM 4.3 mmol/L (3.5-5.1)
[2022-09-02 08:00] VITALS: BP 104/55
[2022-09-02] MEDS: FAMOTIDINE 20MG VIAL IV SCH ×2 (08:42→20:39)
[2022-09-02] MEDS: ASPIRIN 81MG CHEW TAB PO SCH (08:43)
[2022-09-02] MEDS: GABAPENTIN 300 MG CAPSULE PO SCH ×3 (08:48→20:39)
[2022-09-02] MEDS: POLYETHYLENE GLYCOL 3350 17 GM POWD.PACK PO SCH (08:48)
[2022-09-02 12:00] VITALS: BP 104/54
[2022-09-02] MEDS: LEVOFLOXACIN 500 MG TABLET PO SCH (12:24)
[2022-09-02] MEDS: PSYLLIUM SEED 1 EACH PACKET PO SCH (12:25)
[2022-09-02 16:00] VITALS: BP 101/56
[2022-09-02 20:23] VITALS: BP 99/60
[2022-09-02] MEDS: ATORVASTATIN 40 MG TABLET PO SCH (20:39)
[2022-09-02 23:38] VITALS: BP 106/62
[2022-09-03] MEDS: MORPHINE 2 MG SYG IVP PRN ×3 (02:01→17:22)
[2022-09-03 03:15] VITALS: BP 117/64
[2022-09-03 07:55] VITALS: BP 101/59
[2022-09-03] MEDS: FAMOTIDINE 20MG VIAL IV SCH ×2 (08:58→21:37)
[2022-09-03] MEDS: POLYETHYLENE GLYCOL 3350 17 GM POWD.PACK PO SCH (08:58)
[2022-09-03] MEDS: ASPIRIN 81MG CHEW TAB PO SCH (08:58)
[2022-09-03] MEDS: GABAPENTIN 300 MG CAPSULE PO SCH ×3 (08:58→21:37)
[2022-09-03 11:20] VITALS: BP 100/60
[2022-09-03] MEDS: LEVOFLOXACIN 500 MG TABLET PO SCH (12:00)
[2022-09-03] MEDS ORDERED: ACET-2079 PO (12:33)
[2022-09-03] MEDS: PSYLLIUM SEED 1 EACH PACKET PO SCH (14:42)
[2022-09-03 15:20] VITALS: BP 107/59
[2022-09-03 20:03] VITALS: BP 102/57
[2022-09-03] MEDS: ATORVASTATIN 40 MG TABLET PO SCH (21:37)
[2022-09-04 00:03] VITALS: BP 102/53
[2022-09-04] MEDS: MORPHINE 2 MG SYG IVP PRN (03:45)
[2022-09-04 04:02] VITALS: BP 100/59
[2022-09-04 08:00] VITALS: BP 108/71
[2022-09-04] MEDS: POLYETHYLENE GLYCOL 3350 17 GM POWD.PACK PO SCH (09:00)
[2022-09-04] MEDS: GABAPENTIN 300 MG CAPSULE PO SCH ×2 (09:31→14:05)
[2022-09-04] MEDS: ASPIRIN 81MG CHEW TAB PO SCH (09:31)
[2022-09-04] MEDS: FAMOTIDINE 20MG VIAL IV SCH (09:31)
[2022-09-04] MEDS ORDERED: LEVO-70 PO (09:34)
[2022-09-04 12:00] VITALS: BP 104/61
[2022-09-04] MEDS: PSYLLIUM SEED 1 EACH PACKET PO SCH (12:09)
[2022-09-04] MEDS: LEVOFLOXACIN 500 MG TABLET PO SCH (12:09)
[2022-09-04 16:00] VITALS: BP 109/50
== END 2022-09-04 18:10 | disposition home or self-care (01) | DRG 500 ==
LOC: EDH 09:35 → EDHIP 16:55 → 3BH 08-26 12:42
PROVIDERS: ADMIT Hospitalist; ATTEND Hospitalist
PROC: 0YB Anatomical Regions, Lower Extremities, Excision (ICD-10-PCS; principal; 2022-08-27 09:47)
PROC: 0YPB0YZ Removal of Other Device from Left Lower Extremity, Open Approach (ICD-10-PCS; 2022-08-27 09:47)
DX: T84.115A Breakdown (mechanical) of internal fixation device of left femur, initial encounter (principal); A41.9 Sepsis, unspecified organism; L02.416 Cutaneous abscess of left lower limb; T87.44 Infection of amputation stump, left lower extremity; Z20.822 Contact with and (suspected) exposure to COVID-19; I73.9 Peripheral vascular disease, unspecified; W06.XXXA Fall from bed, initial encounter; I10 Essential (primary) hypertension; E78.00 Pure hypercholesterolemia, unspecified; Y83.8 Other surgical procedures as the cause of abnormal reaction of the patient, or of later complication, without mention of misadventure at the time of the procedure; Y92.89 Other specified places as the place of occurrence of the external cause; Z89.512 Acquired absence of left leg below knee; Y93.89 Activity, other specified; Y99.8 Other external cause status; Z89.511 Acquired absence of right leg below knee; Z89.611 Acquired absence of right leg above knee
CPT/HCPCS: 36415; 71045; 73552; 80048; 80053; 80202; 83605; 83735; 84145; 85014; 85018; 85025; 85027; 85610; 85651; 85730; 86850; 86900; 86901; 86923; 87040; 87070; 87076; 87077; 87186; 87635; 88304; 88312; G0378; J0330; J0692; J1100; J2001; J2175; J2250; J2405; J2543; J2704; J2710; J3010; J3370; J3490; J7030; J7050; J7120; L1830; P9045

== ENCOUNTER → 2022-10-13 | Outpatient (CLI) | payer OTHER, MEDICARE ==
[~2022-10-13] MED LIST changes: -CYCL-309 PO; -OFLO35OS OS; -PREDAOS OS
== END | disposition home or self-care (01) ==
LOC: WHH 10:34
PROVIDERS: ATTEND Family Medicine
DX: T87.81 Dehiscence of amputation stump (principal); A48.0 Gas gangrene; I10 Essential (primary) hypertension; E78.00 Pure hypercholesterolemia, unspecified; I73.9 Peripheral vascular disease, unspecified; M86.8X8 Other osteomyelitis, other site; Y83.5 Amputation of limb(s) as the cause of abnormal reaction of the patient, or of later complication, without mention of misadventure at the time of the procedure
CPT/HCPCS: G0463; A4450

== ENCOUNTER → 2022-10-20 | Outpatient (CLI) | payer OTHER, MEDICARE ==
[~2022-10-20] MED LIST changes: +LIDOCAINE HCL 4% LTA SOL 4 ML VIAL TP ONE
== END | disposition home or self-care (01) ==
LOC: WHH 09:02
PROVIDERS: ATTEND Family Medicine
DX: T87.81 Dehiscence of amputation stump (principal); A48.0 Gas gangrene; I10 Essential (primary) hypertension; I73.9 Peripheral vascular disease, unspecified; E78.00 Pure hypercholesterolemia, unspecified; M86.8X8 Other osteomyelitis, other site; Y83.5 Amputation of limb(s) as the cause of abnormal reaction of the patient, or of later complication, without mention of misadventure at the time of the procedure
CPT/HCPCS: 11042

== ENCOUNTER → 2022-10-27 | Outpatient (CLI) | payer OTHER, MEDICARE | END | disposition home or self-care (01) | LOC: WHH 10:28 | PROVIDERS: ATTEND Family Medicine | DX: T87.81 Dehiscence of amputation stump (principal); A48.0 Gas gangrene; I10 Essential (primary) hypertension; E78.00 Pure hypercholesterolemia, unspecified; I73.9 Peripheral vascular disease, unspecified; M86.8X8 Other osteomyelitis, other site; Y83.5 Amputation of limb(s) as the cause of abnormal reaction of the patient, or of later complication, without mention of misadventure at the time of the procedure | CPT/HCPCS: G0463 ==

== ENCOUNTER → 2022-11-03 | Outpatient (CLI) | payer OTHER, MEDICARE | END | disposition home or self-care (01) | LOC: WHH 09:13 | PROVIDERS: ATTEND Family Medicine | DX: T87.81 Dehiscence of amputation stump (principal); S71.102A Unspecified open wound, left thigh, initial encounter; A48.0 Gas gangrene; I73.9 Peripheral vascular disease, unspecified; I10 Essential (primary) hypertension; E78.00 Pure hypercholesterolemia, unspecified; M86.8X8 Other osteomyelitis, other site; X58.XXXA Exposure to other specified factors, initial encounter; Y93.89 Activity, other specified; Y92.89 Other specified places as the place of occurrence of the external cause; Y99.8 Other external cause status; Y83.5 Amputation of limb(s) as the cause of abnormal reaction of the patient, or of later complication, without mention of misadventure at the time of the procedure | CPT/HCPCS: 11042; A4450 ==

== ENCOUNTER → 2022-11-10 | Outpatient (CLI) | payer OTHER, MEDICARE | END | disposition home or self-care (01) | LOC: WHH 10:09 | PROVIDERS: ATTEND Family Medicine | DX: T87.81 Dehiscence of amputation stump (principal); S71.102D Unspecified open wound, left thigh, subsequent encounter; A48.0 Gas gangrene; I10 Essential (primary) hypertension; I73.9 Peripheral vascular disease, unspecified; E78.00 Pure hypercholesterolemia, unspecified; M86.8X8 Other osteomyelitis, other site; X58.XXXD Exposure to other specified factors, subsequent encounter; Y83.5 Amputation of limb(s) as the cause of abnormal reaction of the patient, or of later complication, without mention of misadventure at the time of the procedure | CPT/HCPCS: 11042 ==

== ENCOUNTER → 2022-11-17 | Outpatient (CLI) | payer OTHER, MEDICARE | END | disposition home or self-care (01) | LOC: WHH 09:56 | PROVIDERS: ATTEND Family Medicine | DX: T87.81 Dehiscence of amputation stump (principal); S71.102D Unspecified open wound, left thigh, subsequent encounter; A48.0 Gas gangrene; I10 Essential (primary) hypertension; I73.9 Peripheral vascular disease, unspecified; E78.00 Pure hypercholesterolemia, unspecified; M86.8X8 Other osteomyelitis, other site; X58.XXXD Exposure to other specified factors, subsequent encounter; Y83.5 Amputation of limb(s) as the cause of abnormal reaction of the patient, or of later complication, without mention of misadventure at the time of the procedure | CPT/HCPCS: 11042 ==

== ENCOUNTER → 2022-12-01 | Outpatient (CLI) | payer OTHER, MEDICARE | END | disposition home or self-care (01) | LOC: WHH 08:10 | PROVIDERS: ATTEND Family Medicine | DX: T87.81 Dehiscence of amputation stump (principal); I10 Essential (primary) hypertension; I73.9 Peripheral vascular disease, unspecified; E78.00 Pure hypercholesterolemia, unspecified; Y83.5 Amputation of limb(s) as the cause of abnormal reaction of the patient, or of later complication, without mention of misadventure at the time of the procedure | CPT/HCPCS: 11042; A4450 ==

== ENCOUNTER → 2022-12-08 | Outpatient (CLI) | payer OTHER, MEDICARE | END | disposition home or self-care (01) | LOC: WHH 09:06 | PROVIDERS: ATTEND Family Medicine | DX: T87.81 Dehiscence of amputation stump (principal); E11.622 Type 2 diabetes mellitus with other skin ulcer; L97.822 Non-pressure chronic ulcer of other part of left lower leg with fat layer exposed; I10 Essential (primary) hypertension; E78.00 Pure hypercholesterolemia, unspecified; E11.52 Type 2 diabetes mellitus with diabetic peripheral angiopathy with gangrene; A48.0 Gas gangrene; E11.69 Type 2 diabetes mellitus with other specified complication; M86.8X8 Other osteomyelitis, other site; Y83.5 Amputation of limb(s) as the cause of abnormal reaction of the patient, or of later complication, without mention of misadventure at the time of the procedure | CPT/HCPCS: G0463; A6209 ==

== ENCOUNTER → 2022-12-15 | Outpatient (CLI) | payer OTHER, MEDICARE ==
[~2022-12-15] MED LIST changes: -LIDOCAINE HCL 4% LTA SOL 4 ML VIAL TP ONE
== END | disposition home or self-care (01) ==
LOC: WHH 09:11
PROVIDERS: ATTEND Family Medicine
DX: T87.81 Dehiscence of amputation stump (principal); E11.622 Type 2 diabetes mellitus with other skin ulcer; L97.822 Non-pressure chronic ulcer of other part of left lower leg with fat layer exposed; E78.00 Pure hypercholesterolemia, unspecified; E11.52 Type 2 diabetes mellitus with diabetic peripheral angiopathy with gangrene; A48.0 Gas gangrene; E11.69 Type 2 diabetes mellitus with other specified complication; M86.8X8 Other osteomyelitis, other site; I10 Essential (primary) hypertension; Y83.5 Amputation of limb(s) as the cause of abnormal reaction of the patient, or of later complication, without mention of misadventure at the time of the procedure
CPT/HCPCS: 11042

== ENCOUNTER → 2022-12-22 | Outpatient (CLI) | payer OTHER, MEDICARE | END | disposition home or self-care (01) | LOC: WHH 09:07 | PROVIDERS: ATTEND Family Medicine | DX: T87.81 Dehiscence of amputation stump (principal); E11.622 Type 2 diabetes mellitus with other skin ulcer; L97.822 Non-pressure chronic ulcer of other part of left lower leg with fat layer exposed; E11.52 Type 2 diabetes mellitus with diabetic peripheral angiopathy with gangrene; E11.69 Type 2 diabetes mellitus with other specified complication; M86.8X8 Other osteomyelitis, other site; A48.0 Gas gangrene; I10 Essential (primary) hypertension; E78.00 Pure hypercholesterolemia, unspecified; Y83.5 Amputation of limb(s) as the cause of abnormal reaction of the patient, or of later complication, without mention of misadventure at the time of the procedure | CPT/HCPCS: G0463; A6209 ==

== ENCOUNTER → 2022-12-29 | Outpatient (CLI) | payer OTHER, MEDICARE | END | disposition home or self-care (01) | LOC: WHH 09:49 | PROVIDERS: ATTEND Family Medicine | DX: T87.81 Dehiscence of amputation stump (principal); E11.622 Type 2 diabetes mellitus with other skin ulcer; L97.822 Non-pressure chronic ulcer of other part of left lower leg with fat layer exposed; E11.52 Type 2 diabetes mellitus with diabetic peripheral angiopathy with gangrene; A48.0 Gas gangrene; E11.69 Type 2 diabetes mellitus with other specified complication; M86.8X8 Other osteomyelitis, other site; I10 Essential (primary) hypertension; E78.00 Pure hypercholesterolemia, unspecified; Y83.5 Amputation of limb(s) as the cause of abnormal reaction of the patient, or of later complication, without mention of misadventure at the time of the procedure | CPT/HCPCS: 11042; A6209; A4450 ==

== ENCOUNTER → 2023-01-05 | Outpatient (CLI) | payer OTHER, MEDICARE ==
[~2023-01-05] MED LIST changes: +LIDOCAINE HCL 4% LTA SOL 4 ML VIAL TP ONE
== END | disposition home or self-care (01) ==
LOC: WHH 09:02
PROVIDERS: ATTEND Family Medicine
DX: T87.81 Dehiscence of amputation stump (principal); E11.622 Type 2 diabetes mellitus with other skin ulcer; L97.822 Non-pressure chronic ulcer of other part of left lower leg with fat layer exposed; E11.52 Type 2 diabetes mellitus with diabetic peripheral angiopathy with gangrene; A48.0 Gas gangrene; E11.69 Type 2 diabetes mellitus with other specified complication; M86.8X8 Other osteomyelitis, other site; I10 Essential (primary) hypertension; E78.00 Pure hypercholesterolemia, unspecified; Y83.5 Amputation of limb(s) as the cause of abnormal reaction of the patient, or of later complication, without mention of misadventure at the time of the procedure
CPT/HCPCS: G0463; A6021; A6209

== ENCOUNTER → 2023-01-12 | Outpatient (CLI) | payer OTHER, MEDICARE ==
[~2023-01-12] MED LIST changes: -LIDOCAINE HCL 4% LTA SOL 4 ML VIAL TP ONE
== END | disposition home or self-care (01) ==
LOC: WHH 08:52
PROVIDERS: ATTEND Nurse Practitioner Family
DX: T87.81 Dehiscence of amputation stump (principal); E11.622 Type 2 diabetes mellitus with other skin ulcer; L97.822 Non-pressure chronic ulcer of other part of left lower leg with fat layer exposed; E11.52 Type 2 diabetes mellitus with diabetic peripheral angiopathy with gangrene; A48.0 Gas gangrene; E11.69 Type 2 diabetes mellitus with other specified complication; M86.8X8 Other osteomyelitis, other site; I10 Essential (primary) hypertension; E78.00 Pure hypercholesterolemia, unspecified; Y83.5 Amputation of limb(s) as the cause of abnormal reaction of the patient, or of later complication, without mention of misadventure at the time of the procedure
CPT/HCPCS: G0463

== ENCOUNTER → 2023-01-19 | Outpatient (CLI) | payer OTHER, MEDICARE | END | disposition home or self-care (01) | LOC: WHH 09:07 | PROVIDERS: ATTEND Nurse Practitioner Family | DX: T87.81 Dehiscence of amputation stump (principal); E11.622 Type 2 diabetes mellitus with other skin ulcer; L97.822 Non-pressure chronic ulcer of other part of left lower leg with fat layer exposed; E11.52 Type 2 diabetes mellitus with diabetic peripheral angiopathy with gangrene; A48.0 Gas gangrene; E11.69 Type 2 diabetes mellitus with other specified complication; M86.8X8 Other osteomyelitis, other site; I10 Essential (primary) hypertension; E78.00 Pure hypercholesterolemia, unspecified; Y83.5 Amputation of limb(s) as the cause of abnormal reaction of the patient, or of later complication, without mention of misadventure at the time of the procedure | CPT/HCPCS: G0463 ==